=== PATIENT | male | born 1975 | race Caucasian/White ===

== ENCOUNTER 2016-09-16 20:03 | Emergency (ER) | payer BC, OTHER ==
[2016-09-16] MEDS ORDERED: CEPHALEXIN 500 MG CAPSULE PO ONE (21:45)
[2016-09-16] MEDS ORDERED: SULFAMETHOXAZOLE/TRIMETHOPRIM 800-160 MG TABLET PO ONE (21:45)
[2016-09-16] MEDS ORDERED: DIPH/PERTUSS(ACELL)/TETANUS VAC/PF 0.5 ML SYR (>=10YO) IM ONE (21:46)
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
[2016-09-16 22:15] VITALS: BP 102/61
== END 2016-09-16 22:13 | disposition home or self-care (01) ==
LOC: ER 20:03
DX: T24.201A Burn of second degree of unspecified site of right lower limb, except ankle and foot, initial encounter (principal); X16.XXXA Contact with hot heating appliances, radiators and pipes, initial encounter; S81.802A Unspecified open wound, left lower leg, initial encounter; W45.8XXA Other foreign body or object entering through skin, initial encounter; Z23 Encounter for immunization
CPT/HCPCS: 90471; 90715; 99283

== ENCOUNTER → 2017-05-15 | Outpatient (CLI) | payer BC ==
--- NOTE | 2017-05-15 17:11 | XCELERA REPORT ---
[address] [address] Lower Extremity Arterial Evaluation Name: DEACON COSBY Age: 41 yrs Gender: Male : 1975 Patient Status: Outpatient Patient Location: Study Date: 05/15/2017 03:13 PM Procedure: A color flow and duplex scan of the lower extremity arteries was performed bilaterally with velocity and waveform anaylsis. Ankle brachial indicies performed. 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 0-19 % stenosis in the Posterior Tibial . Ankle Brachial index was not done due to bandages. Left Side Arterial Evaluation Normal velocity and triphasic waveforms noted from the Common Femoral artery to the Anterior Tibial artery in the Posterior Tibial artery . 0-19 % stenosis in the Posterior Tibial . Ankle Brachial index was not done due to bandages. Interpretation Summary Mild hemodynamically significant lesions in the bilateral lower extremities, on duplex imaging, at rest. : DANA ANGULO > Dana Angulo
== END ==
LOC: SP 14:54
PROVIDERS: ATTEND Surgery
DX: L97.919 Non-pressure chronic ulcer of unspecified part of right lower leg with unspecified severity (principal); Z86.718 Personal history of other venous thrombosis and embolism
CPT/HCPCS: 93925

== ENCOUNTER → 2017-06-01 | Outpatient (CLI) | payer BC ==
--- NOTE | 2017-06-01 10:34 | RADIOLOGY REPORT (SQ) ---
EXAM DESCRIPTION: CT ABD/PELVIS COMBO COMPLETED DATE/TIME: 06/01/2017 9:15 am REASON FOR STUDY: MICROSCOPIC HEMATURIA (R31.29) R31.29 OTHER MICROSCOPIC HEMATURIA COMPARISON: None. TECHNIQUE: CT scan of the abdomen and pelvis performed with and without intravenous contrast, and wi thout oral contrast. Contrasted imaging performed helical scanning technique and dynamic intravenous contrast injection. Images reviewed with lung, soft tissue, and bone windows. Reconstructed coronal a nd sagittal MPR images reviewed. Delayed images for evaluation of the urinary system also acquired. A ll images stored on PACS. All CT scanners at this facility use dose modulation, iterative reconstruction, and/or weight based d osing when appropriate to reduce radiation dose to as low as reasonably achievable (ALARA). [facility]: Dose Right [facility]: CareDose [facility]: Dose Right [facility]: Teradose 4D [facility]: [employer] CONTRAST TYPE AND DOSE: contrast/concentration: Isovue 370.00 mg/ml; Total Contrast Delivered: 100.0 ml; Total Saline Delivered: 72.0 ml RENAL FUNCTION: Creatinine 0.8 RADIATION DOSE: CT Rad equipment meets quality standard of care and radiation dose reduction techniq ues were employed. CTDIvol: 10.5 - 11.4 mGy. DLP: 1785 mGy-cm. . LIMITATIONS: None. FINDINGS: NON-CONTRASTED IMAGING: No significant renal or bladder calcifications. No other significa nt organ calcifications. POST-CONTRASTED IMAGING: LOWER CHEST: No significant findings. No nodules or infiltrates. LIVER: Normal size. No masses. No dilated ducts. SPLEEN: Normal size. No focal lesions. PANCREAS: No masses. No significant calcifications. No adjacent inflammation or peripancreatic fluid collections. Pancreatic duct not dilated. GALLBLADDER: No identified stones by CT criteria. No inflammatory changes to suggest cholecystitis. ADRENAL GLANDS: No significant masses or asymmetry. RIGHT KIDNEY AND URETER: No solid masses. No significant calcifications. No hydronephrosis or hyd roureter. LEFT KIDNEY AND URETER: No solid masses. No significant calcifications. No hydronephrosis or hydr oureter. AORTA AND VESSELS: IVC filter. No aneurysm. RETROPERITONEUM: No retroperitoneal adenopathy, hemorrhage or masses. BOWEL AND PERITONEAL CAVITY: No masses or inflammatory changes. No free fluid or peritoneal masses. APPENDIX: Surgically absent. PELVIS: No mass. No free fluid. Normal bladder. ABDOMINAL WALL: No masses. No hernias. BONES: No significant or acute findings. OTHER: No other significant finding. IMPRESSION: No acute findings. No evidence of urinary tract stones or mass. TECHNICAL DOCUMENTATION: JOB ID: [id number] Quality ID # [id number]: Final reports with documentation of one or more dose reduction techniques (e.g., Au tomated exposure control, adjustment of the mA and/or kV according to patient size, use of iterative reconstruction technique) 2010 [employer]- All Rights Reserved Reading location - IP/workstation name: [email or web address]
== END ==
LOC: RAD 08:27
PROVIDERS: ATTEND Urology
DX: R31.29 Other microscopic hematuria (principal)
CPT/HCPCS: 74178; 82565

== ENCOUNTER 2017-11-29 10:50 | Emergency (ER) | payer SELFPAY ==
--- NOTE | 2017-11-29 11:31 | ER Document Report ---
ED Medical Screen (RME) - General Chief Complaint: Chest Pain Stated Complaint: CHEST PAIN Time Seen by Provider: 11/29/17 11:03 Mode of Arrival: Ambulatory Information source: Patient Notes: 42-year-old male with no reported past medical history presents with complaint of chest pain that started 3 days prior to arrival. Patient describes the pain is severe, intermittent and stabbing. Patient denies prior similar symptoms. He reports subjective fever. I have greeted and performed a rapid initial assessment of this patient. A comprehensive ED assessment and evaluation of the patient, analysis of test results and completion of medical decision making process we will be contacted by additional ED providers. General; appears to be in pain holding his chest. Respiratory; no acute distress Cardia; regular rate rhythm no murmurs. TRAVEL OUTSIDE OF THE [place] IN LAST 30 DAYS: No - HPI Onset: Other Onset/Duration: Gradual, Intermittent, Persistent Quality of pain: Stabbing Severity: Moderate Associated Symptoms: Chest pain, Fever. denies: Cough (productive), Cough ( nonproductive), Nausea, Shortness of breath Exacerbated by: Denies Relieved by: Denies Similar symptoms previously: No Recently seen / treated by doctor: No - Related Data Smoking: Non-smoker Frequency of alcohol use: None Drug Abuse: None Allergies/Adverse Reactions: aspirin [Aspirin] Allergy (Verified 11/29/17 10:52) codeine [Codeine] Allergy (Verified 11/29/17 10:52) morphine [Morphine] Allergy (Verified 11/29/17 10:52) Past Medical History Renal/ Medical History: Denies: Hx Peritoneal Dialysis Past Surgical History: Reports: Hx Orthopedic Surgery - Immunizations Immunizations up to date: No Hx Diphtheria, Pertussis, Tetanus Vaccination: Yes - unsure of date Physical Exam - Vital signs Vitals: Temp Pulse Resp BP Pulse Ox 98.3 F 64 14 119/67 97 11/29/17 11:04 11/29/17 11:04 11/29/17 11:04 11/29/17 11:04 11/29/17 11:04 Course - Vital Signs Vital signs: Temp Pulse Resp BP Pulse Ox 98.3 F 64 14 119/67 97 11/29/17 11:04 11/29/17 11:04 11/29/17 11:04 11/29/17 11:04 11/29/17 11:04 Doctor's Discharge - Discharge Referrals: WILY FARIA, DO [Primary Care Provider] - Follow up as needed
[2017-11-29 11:55] LABS: ABSOLUTE EOSINOPHILS # (AUTO) 0.1 10^3/uL (0.0-0.6); ABSOLUTE LYMPHOCYTES (AUTO) 1.8 10^3/uL (0.5-4.7); ABSOLUTE MONOCYTES (AUTO) 0.5 10^3/uL (0.1-1.4); ABSOLUTE NEUT (AUTO) 4.1 10^3/uL (1.7-8.2); BASOPHILS % (AUTO) 0.5 % (0-2); EOSINOPHILS % (AUTO) 2.1 % (0-6); HEMATOCRIT 40.6 % (37.9-51.0); HEMOGLOBIN 13.8 g/dL (13.5-17.0); LYMPHOCYTES % (AUTO) 27.5 % (13-45); MEAN CORPUSCULAR HEMOGLOBIN 30.5 pg (27.0-33.4); MEAN CORPUSCULAR VOLUME 90 fl (80-97); MONOCYTES % (AUTO) 7.2 % (3-13); PLATELET COUNT 253 10^3/uL (150-450); RED BLOOD COUNT 4.53 10^6/uL (4.35-5.55); RED CELL DISTRIBUTION WIDTH 13.7 % (11.5-14.0); SEGMENTED NEUTROPHILS % (AUTO) 62.7 % (42-78); TOTAL CELLS COUNTED % (AUTO) 100 %; WHITE BLOOD COUNT 6.6 10^3/uL (4.0-10.5)
[2017-11-29] MEDS ORDERED: NITROGLYCERIN 0.4 MG/TAB 25 TAB/BOTTLE SL PRN (12:02)
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
[2017-11-29 12:18] LABS: ALANINE AMINOTRANSFERASE 17 U/L (21-72); ALBUMIN 4.2 g/dL (3.5-5.0); ALKALINE PHOSPHATASE 58 U/L (38-126); ANION GAP 6 (5-19); ASPARTATE AMINO TRANSFERASE 21 U/L (17-59); BILIRUBIN,DIRECT 0.4 mg/dL (0.0-0.4); BILIRUBIN,TOTAL 0.7 mg/dL (0.2-1.3); BLOOD UREA NITROGEN 14 mg/dL (7-20); CALCIUM 9.5 mg/dL (8.4-10.2); CARBON DIOXIDE 28 mmol/L (22-30); CHLORIDE 108 mmol/L (98-107); CREATINE KINASE 169 U/L (55-170); GLUCOSE 106 mg/dL (75-110); POTASSIUM 4.3 mmol/L (3.6-5.0); SODIUM 142.3 mmol/L (137-145); TOTAL PROTEIN 7.6 g/dL (6.3-8.2)
[2017-11-29 12:28] LABS: CREATINE KINASE MB 0.97 ng/mL (<4.55)
[2017-11-29 12:30] LABS: TROPONIN I < 0.012 ng/mL
--- NOTE | 2017-11-29 13:14 | RADIOLOGY REPORT (SQ) ---
EXAM DESCRIPTION: CHEST SINGLE VIEW COMPLETED DATE/TIME: 11/29/2017 12:43 pm REASON FOR STUDY: chest pain COMPARISON: 02/19/2014 EXAM PARAMETERS: NUMBER OF VIEWS: One view. TECHNIQUE: Single frontal radiographic view of the chest acquired. RADIATION DOSE: NA LIMITATIONS: None. FINDINGS: LUNGS AND PLEURA: No opacities, masses or pneumothorax. No pleural effusion. MEDIASTINUM AND HILAR STRUCTURES: No masses. Contour normal. HEART AND VASCULAR STRUCTURES: Heart normal in size. Normal vasculature. BONES: No acute findings. HARDWARE: None in the chest. OTHER: No other significant finding. IMPRESSION: NO ACUTE RADIOGRAPHIC FINDING IN THE CHEST. TECHNICAL DOCUMENTATION: JOB ID: [id number] [employer]- All Rights Reserved Reading location - IP/workstation name: [email or web address]
[2017-11-29 13:32] LABS: URINE AMPHETAMINES SCREEN NEGATIVE; URINE BARBITURATES SCREEN NEGATIVE; URINE BENZODIAZEPINES SCREEN NEGATIVE; URINE COCAINE SCREEN NEGATIVE; URINE MARIJUANA (THC) SCREEN NEGATIVE; URINE METHADONE SCREEN NEGATIVE; URINE PHENCYCLIDINE SCREEN NEGATIVE
[2017-11-29] MEDS ORDERED: LIDOCAINE 2% VISCOUS SOLN 20 ML UDCUP PO ONE (14:26)
[2017-11-29] MEDS ORDERED: METOCLOPRAMIDE HCL ORAL SOLN 10 MG/10 ML UDCUP PO ONE (14:26)
[2017-11-29] MEDS ORDERED: MAG HYDROX/AL HYDROX/SIMETH SUSP 30 ML UDCUP PO ONE (14:26)
[2017-11-29 17:01] VITALS: BP 103/57
--- NOTE | 2017-11-29 19:36 | EKG REPORT ---
SEVERITY:- NORMAL ECG - SINUS RHYTHM : Confirmed by: Wendy Garibay MD 29-Nov-2017 19:36:08
--- NOTE | 2017-11-29 19:36 | EKG REPORT ---
SEVERITY:- NORMAL ECG - SINUS RHYTHM : Confirmed by: Wendy Garibay MD 29-Nov-2017 19:36:04
== END 2017-11-29 17:28 | disposition home or self-care (01) ==
LOC: ER 10:50
DX: R07.9 Chest pain, unspecified (principal); Z88.6 Allergy status to analgesic agent
CPT/HCPCS: 93005; 99285; 36415; 82553; 82550; 85025; 80053; 84484; 80307; 71045; 93010; J3490

== ENCOUNTER 2017-12-11 16:16 | Emergency (ER) | payer SELFPAY ==
[2017-12-11] MEDS ORDERED: LIDOCAINE 2% VISCOUS SOLN 20 ML UDCUP PO ONE (16:45)
[2017-12-11] MEDS ORDERED: MAG HYDROX/AL HYDROX/SIMETH SUSP 30 ML UDCUP PO ONE (16:45)
[2017-12-11] MEDS ORDERED: METOCLOPRAMIDE HCL ORAL SOLN 10 MG/10 ML UDCUP PO ONE (16:45)
--- NOTE | 2017-12-11 16:56 | ER Document Report ---
ED Medical Screen (RME) - General Chief Complaint: Chest Pain Stated Complaint: CHEST PAIN/ABDOMINAL PAIN Time Seen by Provider: 12/11/17 16:40 TRAVEL OUTSIDE OF THE [place] IN LAST 30 DAYS: No - HPI Notes: 12/11/17 16:55 Intermittent chest pain epigastric abdominal pain ongoing for greater than a week was recently seen with a negative workup - Related Data Allergies/Adverse Reactions: aspirin [Aspirin] Allergy (Verified 11/29/17 10:52) codeine [Codeine] Allergy (Verified 11/29/17 10:52) morphine [Morphine] Allergy (Verified 11/29/17 10:52) Past Medical History - Social History Frequency of alcohol use: None Drug Abuse: None Renal/ Medical History: Denies: Hx Peritoneal Dialysis Past Surgical History: Reports: Hx Orthopedic Surgery - Immunizations Immunizations up to date: No Hx Diphtheria, Pertussis, Tetanus Vaccination: Yes - unsure of date Review of Systems - Review of Systems Cardiovascular: Chest pain Gastrointestinal: Abdominal pain Physical Exam - Vital signs Vitals: Temp Pulse Resp BP Pulse Ox 98.2 F 67 16 116/70 98 12/11/17 16:27 12/11/17 16:27 12/11/17 16:27 12/11/17 16:27 12/11/17 16:27 - Respiratory Respiratory status: No respiratory distress Chest status: Nontender Breath sounds: Normal Chest palpation: Normal - Cardiovascular Rhythm: Regular Heart sounds: Normal auscultation Course - Vital Signs Vital signs: Temp Pulse Resp BP Pulse Ox 98.2 F 67 16 116/70 98 12/11/17 16:27 12/11/17 16:27 12/11/17 16:27 12/11/17 16:27 12/11/17 16:27 Doctor's Discharge - Discharge Referrals: EMILY HONG MD [Primary Care Provider] - Follow up as needed
--- NOTE | 2017-12-11 17:17 | RADIOLOGY REPORT (SQ) ---
EXAM DESCRIPTION: ACUTE ABDOMEN SERIES COMPLETED DATE/TIME: 12/11/2017 5:03 pm REASON FOR STUDY: cp epigastric COMPARISON: None. NUMBER OF VIEWS: Three views. TECHNIQUE: Frontal chest, supine abdomen and upright/decubitus abdomen radiographic images acquired. LIMITATIONS: None. FINDINGS: CHEST: Lungs clear of infiltrates. FREE AIR: None. No abnormal gas collections. BOWEL GAS PATTERN: Nonobstructive pattern. No dilated loops or air fluid levels. CALCIFICATIONS: No suspicious calcifications. HARDWARE: None in the abdomen. SOFT TISSUES: No gross mass or suggestion of organomegaly. BONES: No acute fracture. No worrisome bone lesions. OTHER: No other significant finding. IMPRESSION: NO RADIOGRAPHIC EVIDENCE FOR ACUTE ABDOMINAL DISEASE. TECHNICAL DOCUMENTATION: JOB ID: [id number] [id number] 2010 [employer]- All Rights Reserved Reading location - IP/workstation name: [email or web address]
[2017-12-11 17:50] LABS: ABSOLUTE EOSINOPHILS # (AUTO) 0.1 10^3/uL (0.0-0.6); ABSOLUTE LYMPHOCYTES (AUTO) 1.9 10^3/uL (0.5-4.7); ABSOLUTE MONOCYTES (AUTO) 0.6 10^3/uL (0.1-1.4); ABSOLUTE NEUT (AUTO) 4.7 10^3/uL (1.7-8.2); BASOPHILS % (AUTO) 0.5 % (0-2); EOSINOPHILS % (AUTO) 1.7 % (0-6); HEMATOCRIT 44.3 % (37.9-51.0); HEMOGLOBIN 15.1 g/dL (13.5-17.0); LYMPHOCYTES % (AUTO) 26.4 % (13-45); MEAN CORPUSCULAR HEMOGLOBIN 30.8 pg (27.0-33.4); MEAN CORPUSCULAR VOLUME 90 fl (80-97); MONOCYTES % (AUTO) 7.7 % (3-13); SEGMENTED NEUTROPHILS % (AUTO) 63.7 % (42-78); TOTAL CELLS COUNTED % (AUTO) 100 %; WHITE BLOOD COUNT 7.4 10^3/uL (4.0-10.5)
[2017-12-11 18:02] LABS: ALANINE AMINOTRANSFERASE 21 U/L (21-72); ALBUMIN 4.8 g/dL (3.5-5.0); ALKALINE PHOSPHATASE 72 U/L (38-126); ANION GAP 9 (5-19); ASPARTATE AMINO TRANSFERASE 19 U/L (17-59); BILIRUBIN,DIRECT 0.5 mg/dL (0.0-0.4); BILIRUBIN,TOTAL 0.9 mg/dL (0.2-1.3); BLOOD UREA NITROGEN 12 mg/dL (7-20); CARBON DIOXIDE 28 mmol/L (22-30); CHLORIDE 106 mmol/L (98-107); CREATINE KINASE 74 U/L (55-170); GLUCOSE 101 mg/dL (75-110); POTASSIUM 4.4 mmol/L (3.6-5.0); SODIUM 142.5 mmol/L (137-145); TOTAL PROTEIN 8.4 g/dL (6.3-8.2)
[2017-12-11 18:09] LABS: PLATELET COUNT 169 10^3/uL (150-450)
--- NOTE | 2017-12-11 18:11 | EKG REPORT ---
SEVERITY:- NORMAL ECG - SINUS RHYTHM : Confirmed by: Wendy Garibay MD 11-Dec-2017 18:11:27
[2017-12-11 18:35] LABS: CREATINE KINASE MB 0.66 ng/mL (<4.55)
[2017-12-11 18:36] LABS: TROPONIN I < 0.012 ng/mL
--- NOTE | 2017-12-11 19:02 | ER Document Report ---
ED General - General Chief Complaint: Chest Pain Stated Complaint: CHEST PAIN/ABDOMINAL PAIN Time Seen by Provider: 12/11/17 16:40 Notes: Patient is a 42-year-old male with a past medical history of a prior traumatic brain injury, no prior cardiac history, has a history of provoked bilateral DVTs during his prolonged hospitalization for traumatic brain injury but no history of PE or unprovoked DVT who presents with 2 weeks of multiple symptoms. His main concern is that he is having intermittent, stabbing left-sided chest discomfort that comes and goes. Nothing seems to trigger the pain and it does resolve spontaneously. He denies any associated shortness of breath or pleuritic pain. No symptoms at the time of my assessment. He also notes that he feels very cold 1 minute and then very hot the next. States he is often quite shaky, and feels "off". Notes that his symptoms started the day after he and his fiance broke up and that he has been under a significant amount of stress to which she attributes the majority of his symptoms. He was seen in the emergency department approximately 10-day gets ago for the same, had a normal workup at that time. He has not followed up with his primary care doctor. TRAVEL OUTSIDE OF THE [place] IN LAST 30 DAYS: No - Related Data Allergies/Adverse Reactions: aspirin [Aspirin] Allergy (Verified 11/29/17 10:52) codeine [Codeine] Allergy (Verified 11/29/17 10:52) morphine [Morphine] Allergy (Verified 11/29/17 10:52) Past Medical History - General Information source: Patient - Social History Smoking Status: Never Smoker Frequency of alcohol use: Occasional Drug Abuse: None Lives with: Alone Family History: Reviewed & Not Pertinent Patient has suicidal ideation: No Patient has homicidal ideation: No Renal/ Medical History: Denies: Hx Peritoneal Dialysis Past Surgical History: Reports: Hx Orthopedic Surgery - Immunizations Immunizations up to date: No Hx Diphtheria, Pertussis, Tetanus Vaccination: Yes - unsure of date Review of Systems - Review of Systems Notes: Constitutional: Positive for cold flashes and shakiness HENT: Negative for sore throat. Eyes: Negative for visual changes. Cardiovascular: Positive for chest pain. Respiratory: Negative for shortness of breath. Gastrointestinal: Negative for abdominal pain, vomiting or diarrhea. Genitourinary: Negative for dysuria. Musculoskeletal: Negative for back pain. Skin: Negative for rash. Neurological: Positive for intermittent headaches 10 point ROS negative except as marked above and in HPI. Physical Exam - Vital signs Vitals: Temp Pulse Resp BP Pulse Ox 98.2 F 67 16 116/70 98 12/11/17 16:27 12/11/17 16:27 12/11/17 16:27 12/11/17 16:27 12/11/17 16:27 Interpretation: Normal Notes: PHYSICAL EXAMINATION: GENERAL: Well-appearing, well-nourished and in no acute distress. HEAD: Atraumatic, normocephalic. EYES: Pupils equal round and reactive to light, extraocular movements intact, sclera anicteric, conjunctiva are normal. ENT: nares patent, oropharynx clear without exudates. Moist mucous membranes. NECK: Normal range of motion, supple without lymphadenopathy LUNGS: Breath sounds clear to auscultation bilaterally and equal. No wheezes rales or rhonchi. HEART: Regular rate and rhythm without murmurs ABDOMEN: Soft, nontender, normoactive bowel sounds. No guarding, no rebound. No masses appreciated. EXTREMITIES: Normal range of motion, no pitting or edema. No cyanosis. NEUROLOGICAL: No focal neurological deficits. Moves all extremities spontaneously and on command. PSYCH: Normal mood, normal affect. SKIN: Warm, Dry, normal turgor, no rashes or lesions noted. Course - Re-evaluation Re-evalutation: 12/11/17 18:58 Presentation of chest pain in an otherwise well appearing patient. Low clinical suspicion for ACS given clinical history, exam, EKG without ST elevations or depressions, and negative initial troponin. HEART score less than or equal to 3. PE also seems unlikely given clinical history, absence of tachycardia or dyspnea. CXR without evidence of pneumothorax or pneumonia. No widened mediastinum. Aortic dissection also seems unlikely given history, symmetric pulses, CXR, and vitals. Patient complains of a multitude of symptoms including hot and cold flashes, palpitations, and notes that his symptoms started a day after he and his fiance broke up. He attributes the majority of his symptoms to anxiety and stress. The variance in multitude of his complaints does seem to suggest a possible somatization component to his presentation. I do not believe serial troponin markers are indicated given the long duration of his symptoms as well as the low clinical probability of a ACS event. At this time will discharge with return precautions and follow-up recommendations. Verbal discharge instructions given a the bedside and opportunity for questions given. Medication warnings reviewed. Patient is in agreement with this plan and has verbalized understanding of return precautions and the need for primary care follow-up in the next 24-72 hours. - Vital Signs Vital signs: Temp Pulse Resp BP Pulse Ox 98.2 F 67 17 107/78 98 12/11/17 16:27 12/11/17 16:27 12/11/17 18:00 12/11/17 17:43 12/11/17 18:00 - Laboratory Result Diagrams: 12/11/17 17:25 12/11/17 17:25 Laboratory results interpreted by me: 12/11/17 17:25 Direct Bilirubin 0.5 H Total Protein 8.4 H - Diagnostic Test Radiology reviewed: Image reviewed, Reports reviewed Radiology results interpreted by me: 12/11/17 18:59 Acute abdominal series: No evidence of pneumothorax, no evidence of obstruction or perforation - EKG Interpretation by Me Additional EKG results interpreted by me: 12/11/17 19:00 Sinus bradycardia. Rate 59. No ST elevations or depressions. QTC is 385. Discharge - Discharge Clinical Impression: Intermittent chest pain, Stress headaches Condition: Good Disposition: HOME, SELF-CARE Additional Instructions: You were seen today for chest pain. The exact cause of your pain is unclear. However, based on your cardiac enzyme testing, chest x-ray, and EKG it does not appear that it is from an immediately life-threatening cause at this time. Although your testing here is normal is critical that you follow-up with your primary care physician for continued evaluation of this chest pain and possible stress testing. I recommended you see your physician within the next 24-48 hours to be evaluated for consideration of a stress test. Please return to emergency department immediately if you have worsening of your chest pain, shortness of breath, vomiting, become unable to exert yourself due to pain or difficulty breathing, you pass out, or have any pain that radiates into your arms, jaw, or back. Please also return if you have any additional symptoms that are concerning to you. Referrals: EMILY HONG MD [Primary Care Provider] - Follow up as needed
[2017-12-11 19:32] VITALS: BP 110/83
== END 2017-12-11 19:32 | disposition home or self-care (01) ==
LOC: ER 16:16
DX: R07.9 Chest pain, unspecified (principal); R51 Headache; F43.9 Reaction to severe stress, unspecified; Z63.0 Problems in relationship with spouse or partner; R00.1 Bradycardia, unspecified; Z86.718 Personal history of other venous thrombosis and embolism; Z87.820 Personal history of traumatic brain injury; Z88.6 Allergy status to analgesic agent; Z88.5 Allergy status to narcotic agent
CPT/HCPCS: 93005; 99285; 36415; 82553; 82550; 83690; 85025; 80053; 84484; 74022; 93010; J3490

== ENCOUNTER 2017-12-30 03:16 | Emergency (ER) | payer MEDICAID ==
--- NOTE | 2017-12-30 03:47 | ER Document Report ---
ED Wound - General Chief Complaint: Laceration Stated Complaint: FELL/BROKEN GLASS HAND INJURY Time Seen by Provider: 12/30/17 03:39 Notes: Patient is a 42-year-old male that comes to the emergency department for chief complaint of laceration to his right hand, he states that he accidentally lost his balance and put his hand through a glass panel on his gun cabinet. He reports bleeding lacerations to the dorsal part of his hand. He denies any other injuries. His tetanus is up-to-date within 5 years. He is not a diabetic , he denies blood thinners. TRAVEL OUTSIDE OF THE [place] IN LAST 30 DAYS: No - Related Data Allergies/Adverse Reactions: aspirin [Aspirin] Allergy (Verified 12/30/17 03:27) codeine [Codeine] Allergy (Verified 12/30/17 03:27) morphine [Morphine] Allergy (Verified 12/30/17 03:27) Past Medical History - General Information source: Patient - Social History Smoking Status: Unknown if Ever Smoked Drug Abuse: None Lives with: Alone Family History: Reviewed & Not Pertinent Patient has suicidal ideation: No Patient has homicidal ideation: No Renal/ Medical History: Denies: Hx Peritoneal Dialysis Past Surgical History: Reports: Hx Orthopedic Surgery - Immunizations Immunizations up to date: No Hx Diphtheria, Pertussis, Tetanus Vaccination: Yes - unsure of date Review of Systems - Review of Systems Constitutional: No symptoms reported EENT: No symptoms reported Cardiovascular: No symptoms reported Respiratory: No symptoms reported Gastrointestinal: No symptoms reported Genitourinary: No symptoms reported Male Genitourinary: No symptoms reported Musculoskeletal: See HPI Skin: See HPI Hematologic/Lymphatic: No symptoms reported Neurological/Psychological: No symptoms reported Physical Exam - Vital signs Vitals: Temp Pulse Resp BP Pulse Ox 98.1 F 61 18 122/79 95 12/30/17 03:26 12/30/17 03:26 12/30/17 03:26 12/30/17 03:26 12/30/17 03:26 - Notes Notes: GENERAL: Alert, interacts well. No acute distress. HEAD: Normocephalic, atraumatic. EYES: Pupils equal, round, and reactive to light. Extraocular movements intact. ENT: Oral mucosa moist, tongue midline. Oropharynx unremarkable. Airway patent. Nares patent, no nasal septal hematoma, TM's intact. NECK: Full range of motion. Supple. Trachea midline. LUNGS: Clear to auscultation bilaterally, no wheezes, rales, or rhonchi. No respiratory distress. HEART: Regular rate and rhythm. No murmur ABDOMEN: Soft, non-tender. Non-distended. Bowel sounds present in all 4 quadrants. GENITOURINARY: Deferred EXTREMITIES: Dorsal right hand with several superficial lacerations, over the MCP below the base of the thumb there is a slightly larger but still superficial flap laceration with mild bleeding. A few scattered fragments of glass noted, no deep wounds or suspected buried foreign bodies. Full range of motion of the hand, normal capillary refill, sensation, normal wrist exam, normal upper extremity exam otherwise. BACK: no cervical, thoracic, lumbar midline tenderness. No saddle anesthesia, normal distal neurovascular exam. NEUROLOGICAL: Alert and oriented x3. Normal speech. [cranial nerves II through XII grossly intact]. PSYCH: Normal affect, normal mood. SKIN: Warm, dry, normal turgor. No rashes or lesions noted. Course - Re-evaluation Re-evalutation: Multiple tiny superficial lacerations over the dorsum of the right hand, palm is normal, range of motion of the hand is normal, I did remove tiny fragments of glass from the very superficial wounds, area was cleaned, one area of Dermabond was placed over the bleeding flap. I do not suspect large buried foreign body. No significant injuries noted. Discussed wound care, follow-up, return precautions, because of multiple foreign bodies in the superficial areas decision was made to cover with antibiotic after discussion with patient. Patient states understanding and agreement with plan. - Vital Signs Vital signs: Temp Pulse Resp BP Pulse Ox 98.2 F 67 18 128/76 H 100 12/30/17 04:14 12/30/17 04:14 12/30/17 04:14 12/30/17 04:14 12/30/17 04:14 Procedures - Laceration/Wound Repair right hand Wound length (cm): 0.5 Wound's Depth, Shape: Superficial, Flap Laceration pre-procedure: Sterile PPE donned, Sterile drapes applied, Shur- Clens applied Wound explored: Clean, No foreign body removed Wound Repaired With: Dermabond Post-procedure wound care: Sterile dressing applied Post-procedure NV exam normal: Yes Complications: No Discharge - Discharge Clinical Impression: Hand laceration Qualifiers: Encounter type: initial encounter Foreign body presence: unspecified Laterality : right Qualified Code(s): S61.411A - Laceration without foreign body of right hand, initial encounter Condition: Stable Disposition: HOME, SELF-CARE Additional Instructions: You have multiple superficial lacerations over the hand. Keep clean, clean gently with soap and water. Take antibiotic as prescribed to avoid infection. Dermabond placed will come off on its own in about 5-7 days. Do not apply topical antibiotic to the area where this will dissolve the glue. Follow-up with primary care. Return for any concerning symptoms including signs of infection such as swelling, developing or spreading redness, fever, discolored discharge, or any other concerning symptoms. Prescriptions: Cephalexin Monohydrate [Keflex 500 mg Capsule] 500 mg PO TID #15 capsule Forms: Return to Work Referrals: EMILY HONG MD [Primary Care Provider] - Follow up as needed
[2017-12-30 04:16] VITALS: BP 128/76
== END 2017-12-30 04:16 | disposition home or self-care (01) ==
LOC: ER 03:16
DX: S61.411A Laceration without foreign body of right hand, initial encounter (principal); W25.XXXA Contact with sharp glass, initial encounter; Z88.6 Allergy status to analgesic agent; Z88.5 Allergy status to narcotic agent
CPT/HCPCS: 99283

== ENCOUNTER 2018-01-16 08:25 | Emergency (ER) | payer MEDICAID ==
[2018-01-16] MEDS ORDERED: ONDANSETRON HCL INJ/PF 4 MG/2 ML SDV IV ONE (09:27)
[2018-01-16] MEDS ORDERED: NORMAL SALINE 1000 ML 1,000 ML IV ONE (09:27)
--- NOTE | 2018-01-16 10:02 | EKG REPORT ---
SEVERITY:- BORDERLINE ECG - SINUS RHYTHM TALL R WAVE IN V2, CONSIDER [facility]H OR PMI : Confirmed by: Jason Adrian 16-Jan-2018 10:00:38
[2018-01-16 10:30] LABS: ABSOLUTE EOSINOPHILS # (AUTO) 0.1 10^3/uL (0.0-0.6); ABSOLUTE LYMPHOCYTES (AUTO) 1.7 10^3/uL (0.5-4.7); ABSOLUTE MONOCYTES (AUTO) 0.5 10^3/uL (0.1-1.4); ABSOLUTE NEUT (AUTO) 5.3 10^3/uL (1.7-8.2); BASOPHILS % (AUTO) 0.5 % (0-2); HEMATOCRIT 42.8 % (37.9-51.0); HEMOGLOBIN 14.8 g/dL (13.5-17.0); LYMPHOCYTES % (AUTO) 22.8 % (13-45); MEAN CORPUSCULAR HEMOGLOBIN 31.4 pg (27.0-33.4); MEAN CORPUSCULAR HGB CONC 34.5 g/dL (32.0-36.0); MEAN CORPUSCULAR VOLUME 91 fl (80-97); MONOCYTES % (AUTO) 6.6 % (3-13); PLATELET COUNT 287 10^3/uL (150-450); RED CELL DISTRIBUTION WIDTH 13.4 % (11.5-14.0); SEGMENTED NEUTROPHILS % (AUTO) 69.1 % (42-78); TOTAL CELLS COUNTED % (AUTO) 100 %; WHITE BLOOD COUNT 7.7 10^3/uL (4.0-10.5)
[2018-01-16 10:50] LABS: ALANINE AMINOTRANSFERASE 16 U/L (21-72); ALBUMIN 4.2 g/dL (3.5-5.0); ALKALINE PHOSPHATASE 71 U/L (38-126); ANION GAP 10 (5-19); ASPARTATE AMINO TRANSFERASE 19 U/L (17-59); BILIRUBIN,DIRECT 0.3 mg/dL (0.0-0.4); BLOOD UREA NITROGEN 12 mg/dL (7-20); CALCIUM 9.5 mg/dL (8.4-10.2); CARBON DIOXIDE 26 mmol/L (22-30); CHLORIDE 107 mmol/L (98-107); CREATINE KINASE 76 U/L (55-170); GLUCOSE 104 mg/dL (75-110); POTASSIUM 4.7 mmol/L (3.6-5.0); SODIUM 143.2 mmol/L (137-145); TOTAL PROTEIN 7.4 g/dL (6.3-8.2)
[2018-01-16] MEDS ORDERED: LIDOCAINE 2% VISCOUS SOLN 20 ML UDCUP PO ONE (10:55)
[2018-01-16] MEDS ORDERED: METOCLOPRAMIDE HCL ORAL SOLN 10 MG/10 ML UDCUP PO ONE (10:55)
[2018-01-16] MEDS ORDERED: MAG HYDROX/AL HYDROX/SIMETH SUSP 30 ML UDCUP PO ONE (10:55)
[2018-01-16 11:00] LABS: CREATINE KINASE MB 0.73 ng/mL (<4.55)
[2018-01-16 11:09] LABS: TROPONIN I < 0.012 ng/mL
[2018-01-16] MEDS ORDERED: FAMOTIDINE INJ/PF 20 MG/2 ML SDV IV ONE (12:55)
--- NOTE | 2018-01-16 13:28 | RADIOLOGY REPORT (SQ) ---
EXAM DESCRIPTION: CHEST 2 VIEWS COMPLETED DATE/TIME: 01/16/2018 1:19 pm REASON FOR STUDY: cp COMPARISON: Chest films 12/11/2017, 11/29/2017, 02/19/2014 EXAM PARAMETERS: NUMBER OF VIEWS: two views TECHNIQUE: Digital Frontal and Lateral radiographic views of the chest acquired. RADIATION DOSE: NA LIMITATIONS: none FINDINGS: LUNGS AND PLEURA: No opacities, masses or pneumothorax. No pleural effusion. MEDIASTINUM AND HILAR STRUCTURES: No masses or contour abnormalities. HEART AND VASCULAR STRUCTURES: Heart normal size. No evidence for failure. BONES: No acute findings. Old healed right clavicle fracture HARDWARE: None in the chest. OTHER: No other significant finding. IMPRESSION: NO ACUTE RADIOGRAPHIC FINDING IN THE CHEST. TECHNICAL DOCUMENTATION: JOB ID: [id number] [employer]- All Rights Reserved Reading location - IP/workstation name: [facility]
--- NOTE | 2018-01-16 13:54 | ER Document Report ---
ED General - General Chief Complaint: Chest Pain > 30 Stated Complaint: CHEST PAIN Time Seen by Provider: 01/16/18 09:15 TRAVEL OUTSIDE OF THE [place] IN LAST 30 DAYS: No - HPI Patient complains to provider of: Chest pain Notes: Patient coming in for chest pain starting throughout the night prior to arrival. Patient denies any fever chills nausea vomiting diarrhea. Denies any cardiac past medical history. Patient states does have history of blood clots mostly due to the trauma that occurred many years ago. Patient states he does have a [employer] filter because of the blood clots. Patient otherwise denies any cough recent travel antibiotics. Resting comfortably upon my evaluation states pain substernal left-sided chest. Increases with movement. - Related Data Allergies/Adverse Reactions: aspirin [Aspirin] Allergy (Verified 01/16/18 08:26) codeine [Codeine] Allergy (Verified 01/16/18 08:26) morphine [Morphine] Allergy (Verified 01/16/18 08:26) Past Medical History - Social History Smoking Status: Unknown if Ever Smoked Family History: Reviewed & Not Pertinent Renal/ Medical History: Denies: Hx Peritoneal Dialysis Past Surgical History: Reports: Hx Orthopedic Surgery - Immunizations Immunizations up to date: No Hx Diphtheria, Pertussis, Tetanus Vaccination: Yes - unsure of date Review of Systems - Review of Systems Constitutional: No symptoms reported EENT: No symptoms reported Cardiovascular: Chest pain Respiratory: No symptoms reported Gastrointestinal: No symptoms reported Genitourinary: No symptoms reported Male Genitourinary: No symptoms reported Musculoskeletal: No symptoms reported Skin: No symptoms reported Hematologic/Lymphatic: No symptoms reported Neurological/Psychological: No symptoms reported -: Yes All other systems reviewed and negative Physical Exam - Vital signs Vitals: Temp Pulse Resp BP Pulse Ox 98.2 F 66 16 108/71 98 01/16/18 08:36 01/16/18 08:36 01/16/18 08:36 01/16/18 08:36 01/16/18 08:36 Interpretation: Normal - General General appearance: Appears well, Alert - HEENT Head: Normocephalic, Atraumatic Eyes: Normal Pupils: PERRL - Respiratory Respiratory status: No respiratory distress Chest status: Tender - Reproduction of some of the pain to palpation left anterior chest wall Breath sounds: Normal Chest palpation: Normal - Cardiovascular Rhythm: Regular Heart sounds: Normal auscultation Murmur: No - Abdominal Inspection: Normal Distension: No distension Bowel sounds: Normal Tenderness: Nontender Organomegaly: No organomegaly - Back Back: Normal, Nontender - Extremities General upper extremity: Normal inspection, Nontender, Normal color, Normal ROM , Normal temperature General lower extremity: Normal inspection, Nontender, Normal color, Normal ROM , Normal temperature, Normal weight bearing. No: Marquise's sign - Neurological Neuro grossly intact: Yes Cognition: Normal Orientation: AAOx4 Jefe Coma Scale Eye Opening: Spontaneous Jefe Coma Scale Verbal: Oriented Jefe Coma Scale Motor: Obeys Commands [place] Coma Scale Total: 15 Speech: Normal Motor strength normal: LUE, RUE, LLE, RLE Sensory: Normal - Psychological Associated symptoms: Normal affect, Normal mood - Skin Skin Temperature: Warm Skin Moisture: Dry Skin Color: Normal Course - Re-evaluation Re-evalutation: 01/16/18 15:23 The patient has atypical chest pain as the patient's chest pain is not suggestive of pulmonary embolus, cardiac ischemia, aortic dissection, or other serious etiology. Given the extremely low risk of these diagnoses further testing and evaluation for these possibilities does not appear to be indicated at this time. The patient has been instructed to return if the symptoms worsen or change in any way. Patient did receive some relief of his pain with GI cocktail. Troponins are negative. Will discharge patient home follow-up primary care physician - Vital Signs Vital signs: Temp Pulse Resp BP Pulse Ox 97.5 F 70 20 120/86 H 100 01/16/18 12:26 01/16/18 12:26 01/16/18 12:26 01/16/18 12:26 01/16/18 12:26 - Laboratory Result Diagrams: 01/16/18 10:15 01/16/18 10:15 Laboratory results interpreted by me: 01/16/18 10:15 ALT 16 L Discharge - Discharge Clinical Impression: Chest wall pain Condition: Good Disposition: HOME, SELF-CARE Instructions: Anti-Inflammatory Medication ([facility]), Chest Wall Pain ([facility]), Gastritis ([facility]), Oral Narcotic Medication ([facility]), Prilosec (Acid Pump Inhibitor) ([facility]) Additional Instructions: Your EKG laboratory testing x-ray today does not show any signs of cardiac ischemia cardiac damage no signs of blood clots within your lungs no signs of infection no pneumonia no fractures. Examination is consistent with possible muscle skeletal cause or possible acid reflux cause of your chest pain. I have recommended taking omeprazole as prescribed return to ER symptoms worsen. Also recommend Tylenol Motrin for acute pain control Ultram for severe pain. Please make sure that he eat a healthy diet I recommend staying away from any fatty greasy foods. Return to ER for any other concerns. Prescriptions: Omeprazole 20 mg PO DAILY #30 capsule. Tramadol HCl [Ultram 50 mg Tablet] 50 mg PO ASDIR PRN #20 tablet PRN Reason: Referrals: EMILY HONG MD [Primary Care Provider] - Follow up as needed
[2018-01-16 14:18] VITALS: BP 120/86
== END 2018-01-16 14:18 | disposition home or self-care (01) ==
LOC: ER 08:25
DX: R07.89 Other chest pain (principal); Z86.718 Personal history of other venous thrombosis and embolism; Z95.828 Presence of other vascular implants and grafts; Z88.6 Allergy status to analgesic agent; Z88.5 Allergy status to narcotic agent
CPT/HCPCS: 93005; 99285; 96361; 96374; 96375; 36415; 82553; 82550; 85025; 80053; 84484; 85379; 71046; 93010; J3490 ×3; J2405; J7030; S0028